=== PATIENT | male | born 1955 | race Caucasian/White ===

== ENCOUNTER 2017-11-06 13:04 | Outpatient (RCR) | payer OTHER, SELFPAY ==
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
--- NOTE | 2017-11-08 08:36 | HP.OTFCE.D ---
FCE D/C Summary - Discharge RIN AGUILA was seen for a one time visit for an FCE on 11/06/17 and is discharged.
== END 2017-11-06 19:00 | disposition home or self-care (01) ==
LOC: OT 13:04
PROVIDERS: Family Provider Family Medicine; PCP Family Medicine; Visit Provider Nurse Practitioner Family
DX: M54.16 Radiculopathy, lumbar region (principal); F43.21 Adjustment disorder with depressed mood
CPT/HCPCS: 97750